=== PATIENT | male | born 1950 | race Caucasian/White ===

== ENCOUNTER 2024-04-02 13:50 | Outpatient (CLI) | payer MEDICARE, BC | END 2024-04-02 13:51 | disposition home or self-care (01) | LOC: CSHCP 13:50 | PROVIDERS: ATTEND Internal Medicine Critical Care Medicine | DX: J45.909 Unspecified asthma, uncomplicated (principal); R94.2 Abnormal results of pulmonary function studies | CPT/HCPCS: 94060; 94664; 94726; 94729; 94760 ==